=== PATIENT | female | born 1980 | race African-American/Black ===

== ENCOUNTER 2018-09-20 14:57 | Emergency (ER) | payer MEDICAID ==
[~2018-09-20] VITALS: Ht 162.6 cm; Wt 60.0 kg
[2018-09-20 14:58] VITALS: BP 132/99
[2018-09-20] MEDS ORDERED: ALBU4TAB6 PO (15:02)
== END 2018-09-20 19:31 | disposition left against medical advice (07) ==
LOC: ER 14:57
DX: Z53.21 Procedure and treatment not carried out due to patient leaving prior to being seen by health care provider (principal)

== ENCOUNTER 2020-01-28 17:14 | Emergency (ER) | payer MEDICAID ==
[~2020-01-28] VITALS: Ht 160 cm; Wt 55.0 kg
[~2020-01-28 17:14] MED LIST: ALBU4TAB6 PO
[2020-01-28 17:26] VITALS: BP 113/82
== END 2020-01-28 22:31 | disposition left against medical advice (07) ==
LOC: ER 17:16
DX: Z53.21 Procedure and treatment not carried out due to patient leaving prior to being seen by health care provider (principal)

== ENCOUNTER 2020-08-07 10:32 | Emergency (ER) | payer MEDICAID ==
[~2020-08-07] VITALS: Ht 165.1 cm; Wt 50.0 kg
[2020-08-07 10:33] VITALS: BP 152/96
== END 2020-08-07 13:00 | disposition left against medical advice (07) ==
LOC: ER 10:48
DX: J45.909 Unspecified asthma, uncomplicated (principal); Z53.21 Procedure and treatment not carried out due to patient leaving prior to being seen by health care provider

== ENCOUNTER 2020-10-19 22:22 | Emergency (ER) | payer MEDICAID ==
[~2020-10-19] VITALS: Ht 165.1 cm; Wt 69.0 kg
[2020-10-19 22:24] VITALS: BP 156/95
== END 2020-10-20 00:03 | disposition left against medical advice (07) ==
LOC: ER 22:22
DX: Z53.21 Procedure and treatment not carried out due to patient leaving prior to being seen by health care provider (principal)
CPT/HCPCS: 93005

== ENCOUNTER 2020-12-08 01:28 | Emergency (ER) | payer MEDICAID ==
[~2020-12-08] VITALS: Ht 167.6 cm; Wt 63.0 kg
[2020-12-08] MEDS ORDERED: ALBU90AE INH (01:47)
[2020-12-08 02:00] VITALS: BP 149/94
== END 2020-12-08 02:00 | disposition home or self-care (01) ==
LOC: ER 01:28
DX: Z76.0 Encounter for issue of repeat prescription (principal); J45.909 Unspecified asthma, uncomplicated; F12.10 Cannabis abuse, uncomplicated
CPT/HCPCS: 99283

== ENCOUNTER 2021-08-25 04:03 | Emergency (ER) | payer OTHER, MEDICAID ==
[~2021-08-25] VITALS: Ht 167.6 cm; Wt 66.0 kg
[~2021-08-25 04:03] MED LIST changes: +ALBU90AE INH
[2021-08-25 04:06] VITALS: BP 142/68
== END 2021-08-25 05:14 | disposition left against medical advice (07) ==
LOC: ER 04:07
DX: Z53.21 Procedure and treatment not carried out due to patient leaving prior to being seen by health care provider (principal)